=== PATIENT | male | born 1995 | race Caucasian/White ===

== ENCOUNTER 2019-01-05 23:12 | Inpatient (IN) | payer MEDICAID ==
[~2019-01-05] VITALS: Ht 170.2 cm; Wt 64.0 kg
[2019-01-05 23:17] VITALS: Ht 170.2 cm; Wt 64.0 kg
[2019-01-06 00:32] LABS: microscopic required? NO
[2019-01-06 00:49] LABS: BASOPHIL % 0.3 % (0-2); PLATELET COUNT 218 x10^3mcL (130-400); RED CELL DISTRIBUTION WIDTH 13.2 % (11.5-14.5); UA SPECIFIC GRAVITY 1.015 (1.005-1.035); urine erythrocyte NEGATIVE (NEGATIVE)
[2019-01-06 01:02] LABS: CALCIUM 8.6 mg/dL (8.5-10.1); CHLORIDE SERUM 104 mmol/L (98-107); CREATININE SERUM 1.1 mg/dL (0.7-1.3); GFR1 > 60 mL/min; POTASSIUM SERUM 3.2 mmol/L (3.5-5.1); SODIUM SERUM 142 mmol/L (136-145)
[2019-01-06 01:16] LABS: ALBUMIN 4.5 g/dL (3.4-5.0); ALKALINE PHOSPHATASE 58 U/L (46-116); ALT/SGPT 48 U/L (16-63); AST/SGOT 27 U/L (15-37); BILIRUBIN TOTAL 0.46 mg/dL (0.20-1.00); CARBON DIOXIDE 30.1 mmol/L (21-32); GLUCOSE SERUM 85 mg/dL (74-106); LIPASE 82 IU/L (73-393); TOTAL PROTEIN, SERUM 7.7 g/dL (6.4-8.2)
[2019-01-06 04:29] LABS: AMPHETAMINE QUAL UR NONE DETECTED (See below)
[2019-01-06 05:24] VITALS: BP 124/68
[2019-01-06 09:42] VITALS: BP 104/61
[2019-01-06 13:10] VITALS: BP 123/73
[2019-01-06 17:17] VITALS: BP 109/58
[2019-01-06 20:15] VITALS: BP 115/64
[2019-01-07 04:21] VITALS: BP 109/60
[2019-01-07 07:04] LABS: CARBON DIOXIDE 28.9 mmol/L (21-32); CHLORIDE SERUM 106 mmol/L (98-107); CREATININE SERUM 1.1 mg/dL (0.7-1.3); GFR1 > 60 mL/min; GLUCOSE SERUM 155 mg/dL (74-106); POTASSIUM SERUM 4.6 mmol/L (3.5-5.1); SODIUM SERUM 141 mmol/L (136-145)
[2019-01-07 08:49] VITALS: BP 116/67
[2019-01-07 10:24] LABS: BASOPHIL % 0.1 % (0-2); PLATELET COUNT 166 x10^3mcL (130-400); RED CELL DISTRIBUTION WIDTH 13.5 % (11.5-14.5)
[2019-01-07] MEDS ORDERED: NOR10T PO (10:35)
[2019-01-07 12:21] VITALS: BP 116/67
== END 2019-01-07 14:00 | disposition home or self-care (01) | DRG 233 ==
LOC: ED 23:12 → MU 01-06 03:59
PROVIDERS: Emergency Medicine; Surgery; ADMIT Internal Medicine
PROC: 0DTJ4ZZ Resection of Appendix, Percutaneous Endoscopic Approach (ICD-10-PCS; principal; 2019-01-06 10:30)
DX: K35.30 Acute appendicitis with localized peritonitis, without perforation or gangrene (principal); E87.6 Hypokalemia; Z68.22 Body mass index [BMI] 22.0-22.9, adult
CPT/HCPCS: G0378; J0330; J0696; J1170; J1885; J2250; J2270; J2405; J2543; J2704; J2710; J3010; J3480; J3490; J7030; J7060; J7120